=== PATIENT | male | born 1950 | race Caucasian/White ===

== ENCOUNTER → 2018-01-12 11:19 | Outpatient (CLI) | payer OTHER, SELFPAY | PROVIDERS: Visit Provider Physician Assistant | DX: L97.519 Non-pressure chronic ulcer of other part of right foot with unspecified severity (principal); L03.115 Cellulitis of right lower limb ==

== ENCOUNTER → 2018-01-15 11:04 | Outpatient (CLI) | payer OTHER, SELFPAY ==
--- NOTE | 2018-01-15 | OV.WND_ITS ---
Progress Note Details Patient Name: Vladimir Bennett Patient Number: [id number] PatientPatientDate: 01/15/2018 Clinician: Denise Berrios Clinician Cosigner: Albertina Walsh Physician / [place]br[place] Tanner: Teofilo Chawla SUBJECTIVE Chief Complaint This information was obtained from the chart Cellulitis of bilateral feet. Allergies penicillin (Severity: Moderate, Reaction: unkown) HPI This information was obtained from the patient 01/15/18. Seen by Dr. Chawla. The patient returns to clinic with bilateral plantar and dorsal foot non-pressure ulcers related to his refractory cellulitis and chronic fungal infections. He recently been placed on clindamycin for the cellulitis and feels the foot swelling and pain have begun to improve although it's still difficult for him to walk very far. The ulcers and cellulitis have been present for a number of months and he admittedly does not follow his providers' recommendation most often. 07/27/[address] Chawla. The patient reports significant improvement in terms of his right foot pain and he does not report any drainage from his wounds. 07/13/[address] Chawla. The patient returns to our clinic for review of bilateral, painful non-pressure foot ulcers. He reports pain and redness in particular in the right foot and lower leg which started about a week ago and he subsequently attended urgent care where a wound culture was performed and he was started on Bactrim. His culture returned positive today for MRSA and he's been advised to start taking doxycycline but has not picked up the prescription yet. He's also been given a topical and oral antifungal by his PCP and has been applying topical triamcinolone to both feet for a few weeks as per recommendations from dermatology. He states he's been having low grade fevers for the past week but feels the redness in the right lower leg and foot have improved since starting on Bactrim. He also has been soaking his feet in a sea salt bath twice daily and applied a homeopathic combination of activated charcoal and I believe 'tumeric' to the bilateral foot wounds to help alleviate the pain. Of note, he's been recently diagnosed with CAD and recommended to undergo CABG however he's states he's not willing to have surgery at this time. In relation to this he does not report rest pain or claudication. He also reports significant itching and cracking of the palmar surface of the right thumb that's been present for the past week. 10/17/14 Seen by Kevin Tellez PA-C. The patient did take the fluconazole and doxycycline as prescribed, but instead of following our foot care orders has purchased salt from the sea which he reports has purported health benefits. He has done several foot soaks using the salt and water. He believes his feet are much improved. 10/10/14 Seen by Kevin Tellez PA-C. The patient presents to the clinic with a recent history of what was described as a fungal cellulitis of his right foot. He is not immunocompromised, is not diabetic and his only medical history is hypertension. He has chronological photos on his phone of what appears to be resolving erythema once the keflex was started though he does not agree that the redness has been resolving. He has also been using topical antifungal creams on the foot. He has not had pain drainage associated with this cellulitis. Family History This information was obtained from the patient Cancer - Father, Diabetes - Paternal Grandparents, Heart Disease - Mother, Father Social History This information was obtained from the patient Never smoker, Alcohol Use - None, Caffeine Use - None, Children - 2 children, Lives in - Own home, Marital Status - , Object to Blood Products - No objections, Occupation - cardiac specialist Past Medical History This information was obtained from the patient Patient has a medical history of: Hypertension Peripheral Neuropathy CAD Surgical History This information was obtained from the patient Patient has a surgical history of: Hernia (Age 7) Colonoscopy Skin lesion removal (Age 5) Complaints and Symptoms This information was obtained from the patient Patient complains of: General Notes: I have reviewed and concur with the Review of Systems and Past Family Social History documents completed by the clinician, I have reviewed and concur with the Wound Assessment document completed by the clinician Hematologic/Lymphatic: Bleeding Tendency Integumentary (Hair/Skin/Nails): Lesions, Open Sore Prior Wound History: Drainage, Erythema, Pain Patient denies complaints or symptoms related to: Cardiovascular (Central): Irregular heart beat Cardiovascular (Central/Peripheral): Intermittent Claudication, Lower extremity (leg) resting pain, Lower extremity (leg) swelling Constitutional Symptoms (General Health): Chills, Fever, Loss of Appetite Ear/Nose/Mouth/Throat: Hearing Loss / Aid Gastrointestinal (GI): Nausea / Vomiting, Stomach/abdominal pain Hematologic/Lymphatic: Bleeding / Clotting Disorders Musculoskeletal: Assistive Devices, Muscle Weakness Neurological: Loss of Protective Sensation Prior Wound History: Bleeding, Malodor Psychiatric: Memory Loss Respiratory: Oxygen Use, Shortness of Breath Medications clindamycin HCl - oral 300 mg 1 capsule three times daily for 10 days for cellulitis OBJECTIVE Constitutional BP elevated; Afebrile; Alert and in no distress. Well developed. Alert. Clean appearing.. Height/Length: 76 in (193.04 cm), Weight: 250.4 lbs (113.82 kgs), BMI: 30.5, Temperature: 98.5 ?F (36.94 ?C), Pulse: 78 bpm, Respiratory Rate: 16 breaths/min, Blood Pressure: 182/87 mmHg, Pulse Oximetry: 98 %. Respiratory: No respiratory distress. Even respirations and without use of accessory muscles.. Cardiovascular: 1+ bilateral lower leg edema. Gastrointestinal (GI): Obese. Nondistended.. Integumentary (Hair, Skin) Mild periwound erythema without warmth; significant amount of denuded skin over both feet. Refer to appropriate clinician wound documentation for this visit; right and left foot ulcers extend to subcut with bases partially covered with pink granulation, remainder fibrin and slough. Wound #9 Left Foot is a chronic Partial Thickness Cellulitis and has received a status of Not Healed. Subsequent wound encounter measurements are 6cm length x 8cm width x 0.1cm depth, with an area of 48 sq cm and a volume of 4.8 cubic cm. No tunneling has been noted. No sinus tract has been noted. No undermining has been noted. There is a small amount of serosanguineous drainage noted which has no odor. The patient reports a wound pain of level 4/10. The wound margin is attached. Wound bed has Yes epithelialization, No eschar, Yes slough, No granulation. The periwound skin color is normal. The periwound skin exhibited: Edema, Dry/ Scaly. The periwound skin did not exhibit: Brawny Induration, Excoriation, Induration, Callus, Crepitus, Fluctuance, Friable, Rash, Moist, Maceration. The temperature of the periwound skin is WNL. Periwound skin presents with s/s of infection. Confirmation Description and Treatment Plan is: Signs and Symptoms Present. Local Pulse is Palpable. Wound #10 Right Foot is a chronic Partial Thickness Cellulitis and has received a status of Not Healed. Initial wound encounter measurements are 11cm length x 11.5cm width x 0.1cm depth, with an area of 126.5 sq cm and a volume of 12.65 cubic cm. No tunneling has been noted. No sinus tract has been noted. No undermining has been noted. There is a small amount of serosanguineous drainage noted which has no odor. The patient reports a wound pain of level 4/10. The wound margin is attached. Wound bed has No epithelialization, Yes eschar, Yes slough, No granulation. The periwound skin color is normal. The periwound skin exhibited: Edema, Dry/ Scaly. The periwound skin did not exhibit: Brawny Induration, Excoriation, Induration, Callus, Crepitus, Fluctuance, Friable, Rash, Moist, Maceration. The temperature of the periwound skin is Warm. Periwound skin presents with s/s of infection. Confirmation Description and Treatment Plan is: Signs and Symptoms Present. Local Pulse is Palpable. Neurological: Cranial nerves grossly intact with symmetric function normal by informal observation.. ASSESSMENT Active Problems ICD-10 (Encounter Diagnosis) L97.512 - Non-pressure chronic ulcer of other part of right foot with fat layer exposed (Encounter Diagnosis) L97.522 - Non-pressure chronic ulcer of other part of left foot with fat layer exposed (Encounter Diagnosis) L03.116 - Cellulitis of left lower limb (Encounter Diagnosis) L03.115 - Cellulitis of right lower limb PLAN Wound Orders: Wound #9 Left Foot Anesthetic Topical Xylocaine to wound bed. - Lidocaine used in clinic. Cleanser Cleanse Wound: - Distilled water and gauze. May Shower. - Cover while in shower. Other order: - Soak feet by using distilled water moistened gauze covering affected area for about 15 minutes a day. Dressings Cover and secure with: - Xeroform, secured with conform wrap gauze. Change Dressing: - Every day. Wound #10 Right Foot Anesthetic Topical Xylocaine to wound bed. - Lidocaine used in clinic. Cleanser Cleanse Wound: - Distilled water and gauze. May Shower. - Cover while in shower. Other order: - Soak feet by using distilled water moistened gauze covering affected area for about 15 minutes a day. Dressings Cover and secure with: - Xeroform, secured with conform wrap gauze. Change Dressing: - Every day. Additional Orders: Follow-Up Appointments Return Appointment: - - When you return from [place]. Other information: If you develop fever, chills, increased pain, drainage, redness or swelling please call our office. If after hours, respond to the ER. Should you experience any significant changes in your wound(s) or have any questions regarding your home care instructions please contact the wound center @ [phone]. If after hours, contact your primary care physician or go to the hospital emergency room. Scribing Attestation I attest, as the nurse, that I scribed these orders for the physician. I've reviewed the clinician's documentation and agree with the evaluation and plan as written. Also, the patient will continue on his clindamycin and we'll attempt to soften the adherent, dry and denuded skin to facilitate more effective debridement at his next visit. Electronic Signature(s) Signed By: Date: Teofilo Chawla MD 01/19/2018 06:47:29 Entered By: Teofilo Chawla on 01/19/2018 06:35:09 Addendum at 01/29/2018 13:05:14 Clinical level of care completed after progressed note was signed. Addendum Signed By: Teofilo Chawla on 01/29/2018 13:05:14
== END ==
PROVIDERS: PCP Physician Assistant; Visit Provider Family Medicine
DX: L97.512 Non-pressure chronic ulcer of other part of right foot with fat layer exposed (principal); L97.522 Non-pressure chronic ulcer of other part of left foot with fat layer exposed; L03.116 Cellulitis of left lower limb; L03.115 Cellulitis of right lower limb
CPT/HCPCS: 87070; 87077; 87147; 87186; 87205; 99214

== ENCOUNTER → 2019-03-31 15:42 | Outpatient (CLI) | payer OTHER, SELFPAY ==
[2019-03-31 16:47] LABS: Erythrocyte Sedimentation Rate 9 MM/HR (0-15)
[2019-03-31 17:51] LABS: BUN Creatinine Ratio 13.6 (6-22); Blood Urea Nitrogen 19 mg/dL (9-20); C-Reactive Protein Quant 1.6 mg/dL (<1.0); Carbon Dioxide 28 mmol/L (22-32); Chloride 104 mmol/L (98-107); Estimated Glomerular Filt Rate 50.5 mL/min (>60); Glucose 72 mg/dL (80-110); HEMOLYSIS < 15 (0-50); Potassium 5.2 mmol/L (3.4-5.1); Sodium 140 mmol/L (137-145)
[2019-03-31 18:21] LABS: TSH w/ Reflex to FT4 4.57 uIU/mL (0.47-4.68)
[2019-03-31 18:39] LABS: Vitamin B12 925 pg/mL (239-931)
[2019-03-31 19:13] LABS: Hemoglobin A1C% w Est Avg Glu 5.6 % (4.0-6.0)
== END ==
PROVIDERS: PCP Student in an Organized Health Care Education/Training Program; Visit Provider Student in an Organized Health Care Education/Training Program
DX: G62.9 Polyneuropathy, unspecified (principal); I10 Essential (primary) hypertension
CPT/HCPCS: 36415; 80048; 82607; 83036; 84443; 85651; 86140

== ENCOUNTER → 2020-09-12 15:55 | Outpatient (CLI) | payer OTHER, SELFPAY ==
[2020-09-12 16:55] LABS: BUN Creatinine Ratio 11.6 (6-22); Blood Urea Nitrogen 16 mg/dL (9-20); Calcium 9.6 mg/dL (8.4-10.2); Carbon Dioxide 26 mmol/L (22-32); Chloride 104 mmol/L (98-107); Estimated Glomerular Filt Rate 51.2 mL/min (>60); Glucose 96 mg/dL (80-110); HEMOLYSIS < 15 (0-50); Potassium 4.8 mmol/L (3.4-5.1); Sodium 138 mmol/L (137-145)
[2020-09-12 17:11] LABS: Creatinine Urine Random 108.2 mg/dL
[2020-09-12 17:16] LABS: Microalbumin Urine Random < 0.6 mg/dL (0-1.6)
[2020-09-12 17:23] LABS: Prostate Specific Antigen Scrn 2.48 ng/mL (0.1-4.0)
== END ==
PROVIDERS: PCP Student in an Organized Health Care Education/Training Program; Referring Provider Student in an Organized Health Care Education/Training Program; Visit Provider Student in an Organized Health Care Education/Training Program
DX: I10 Essential (primary) hypertension (principal); N17.9 Acute kidney failure, unspecified; Z12.5 Encounter for screening for malignant neoplasm of prostate
CPT/HCPCS: 36415; 80048; 82043; 82570; G0103

== ENCOUNTER → 2021-03-11 11:45 | Outpatient (CLI) | payer OTHER, SELFPAY ==
[2021-03-11 14:11] LABS: BUN Creatinine Ratio 9.2 (6-22); Blood Urea Nitrogen 14 mg/dL (9-20); Calcium 9.8 mg/dL (8.4-10.2); Carbon Dioxide 28 mmol/L (22-32); Chloride 104 mmol/L (98-107); Estimated Glomerular Filt Rate 45.5 mL/min (>60); Glucose 107 mg/dL (80-110); HEMOLYSIS < 15 (0-50); Sodium 140 mmol/L (137-145)
[2021-03-11 14:12] LABS: Potassium 5.4 mmol/L (3.4-5.1)
== END ==
PROVIDERS: PCP Student in an Organized Health Care Education/Training Program; Referring Provider Student in an Organized Health Care Education/Training Program; Visit Provider Student in an Organized Health Care Education/Training Program
DX: I10 Essential (primary) hypertension (principal); N18.31 Chronic kidney disease, stage 3a
CPT/HCPCS: 36415; 80048

== ENCOUNTER → 2021-03-27 12:48 | Outpatient (CLI) | payer OTHER, SELFPAY ==
--- NOTE | 2021-03-27 | DI.US.S_ITS ---
PROCEDURE: US CAROTID DOPPLER BI INDICATIONS: AMAUROSIS FUGAX TECHNIQUE: Color and pulse Doppler interrogation was performed of both carotid systems, with image documentation and velocity measurements. COMPARISON: None. FINDINGS: Stenosis calculations are based on SRU (Society of Radiologists in Ultrasound) criteria. Right side: Brachial blood pressure: 130/75 mm Hg. Common carotid artery peak systolic velocity: 110 cm/sec. Internal carotid artery peak systolic velocity: 161 cm/sec. Internal carotid artery end diastolic velocity: 20 cm/sec. External carotid artery peak systolic velocity: 247 cm/sec. ICA/CCA peak systolic ratio: 1.5 Rivera scale imaging description: Mild to moderate plaque at the bifurcation Percent internal carotid artery stenosis: 50-69% . Vertebral artery: Flow direction is antegrade. Left side: Brachial blood pressure: 122/70 mm Hg. Common carotid artery peak systolic velocity: 110 cm/sec. Internal carotid artery peak systolic velocity: 132 cm/sec. Internal carotid artery end diastolic velocity: 19 cm/sec. External carotid artery peak systolic velocity: 298 cm/sec. ICA/CCA peak systolic ratio: 1.2 . Rivera scale imaging description: Mild to moderate plaque at the bifurcation Percent internal carotid artery stenosis: 50-69% stenosis . Vertebral artery: Flow direction is antegrade. IMPRESSION: 1. 50-69% stenosis within the internal carotid arteries bilaterally. 2. Elevated velocities within the external carotid arteries bilaterally most suggestive significant stenosis. Further evaluation with CT a may be obtained as indicated. Dictated by: Leslye Kendall M.D. on 03/27/2021 at 16:32 Approved by: Leslye Kendall M.D. on 03/27/2021 at 16:34
== END ==
PROVIDERS: PCP Student in an Organized Health Care Education/Training Program; Referring Provider Ophthalmology; Visit Provider Ophthalmology
DX: I65.23 Occlusion and stenosis of bilateral carotid arteries (principal); G45.3 Amaurosis fugax
CPT/HCPCS: 93880

== ENCOUNTER → 2021-10-10 12:19 | Outpatient (CLI) | payer OTHER, SELFPAY ==
[2021-10-10 13:03] LABS: BUN Creatinine Ratio 14.8 (6-22); Blood Urea Nitrogen 20 mg/dL (9-20); Calcium 9.2 mg/dL (8.4-10.2); Carbon Dioxide 27 mmol/L (22-32); Chloride 104 mmol/L (98-107); Estimated Glomerular Filt Rate 57 mL/min (>60); Glucose 102 mg/dL (80-110); HEMOLYSIS < 15 (0-50); Phosphorous 3.3 mg/dL (2.3-3.7); Potassium 4.9 mmol/L (3.4-5.1); Sodium 140 mmol/L (137-145)
[2021-10-10 13:31] LABS: Prostate Specific Antigen Scrn 2.36 ng/mL (0.1-4.0)
[2021-10-10 16:14] LABS: Creatinine Urine Random 90.5 mg/dL
[2021-10-10 16:25] LABS: Microalbumin Urine Random < 0.6 mg/dL (0-1.6)
[2021-10-10 16:33] LABS: Vitamin D 25 Hydroxy (D3) 52.6 ng/mL (30.0-100.0)
== END ==
PROVIDERS: PCP Student in an Organized Health Care Education/Training Program; Referring Provider Student in an Organized Health Care Education/Training Program; Visit Provider Student in an Organized Health Care Education/Training Program
DX: I12.9 Hypertensive chronic kidney disease with stage 1 through stage 4 chronic kidney disease, or unspecified chronic kidney disease (principal); N18.31 Chronic kidney disease, stage 3a; Z12.5 Encounter for screening for malignant neoplasm of prostate
CPT/HCPCS: 36415; 80048; 82043; 82306; 82570; 84100; G0103

== ENCOUNTER 2022-09-03 10:45 | Emergency (ER) | payer OTHER, SELFPAY ==
[2022-09-03] VITALS (23 sets, daily range): BP systolic 132–219; BP diastolic 70–100; PULSE 50–79; RESP 12–24; TEMP 36.6; O2SAT 94–98; BMI 34.7
--- NOTE | 2022-09-03 11:00 | DI.RAD.S_ITS ---
PROCEDURE: XR CHEST 1V INDICATIONS: chest pain TECHNIQUE: One view of the chest was acquired. COMPARISON: None. FINDINGS: Surgical changes and devices: None. Lungs and pleura: Very mild interstitial pulmonary edema. No pleural effusions or pneumothorax. Mediastinum: Mediastinal contours appear normal. Heart size is normal. Bones and chest wall: No suspicious bony lesions. Overlying soft tissues appear unremarkable. IMPRESSION: Very mild interstitial pulmonary edema. Dictated by: Tino Linn M.D. on 09/03/2022 at 11:35 Approved by: Tino Linn M.D. on 09/03/2022 at 11:38
[2022-09-03] MEDS: ASPIRIN 81 MG CHEW TAB 324 MG PO (11:08)
[2022-09-03 11:17] LABS: INR 0.9 (0.9-1.3); Prothrombin Time 10.7 SECONDS (10.1-12.7)
[2022-09-03 11:20] LABS: PTT Partial Thromboplastin Tim 30 SECONDS (26-36)
[2022-09-03 11:21] LABS: Add Manual Diff / Slide Review NO; Basophils Absolute Auto 0 /uL (0-100); Basophils Percent Auto 0.5 % (0-2); Eosinophils Absolute Auto 0 /uL (0-450); Eosinophils Percent Auto 0.5 % (2-4); Hematocrit 44.9 % (41-53); Hemoglobin 15.1 g/dL (13.5-17.5); Lymphocytes Absolute Auto 1900 /uL (1100-4500); Lymphocytes Percent Auto 20.2 % (25-40); Mean Corpuscular HGB Conc 33.6 % (30-36); Mean Corpuscular Hemoglobin 31.8 PG (26-34); Mean Corpuscular Volume 94.9 fL (80-100); Monocytes Absolute Auto 700 /uL (0-900); Monocytes Percent Auto 7.6 % (3-14); Neutrophils Absolute Auto 6800 /uL (1500-7000); Neutrophils Percent Auto 71.2 % (50-75); Platelet Count 267 X10^3/uL (150-400); Red Blood Cell Count 4.74 X10^6/uL (4.5-5.9); Red Cell Distribution Width 12.9 % (11.6-14.8); White Blood Cell Count 9.5 X10^3/uL (4.5-11.0)
[2022-09-03 11:26] LABS: Alanine Aminotransferase 43 IU/L (<50); Albumin 4.3 g/dL (3.5-5.0); Albumin Globulin Ratio 1.3 (1.0-2.8); Alkaline Phosphatase 95 U/L (38-126); Aspartate Aminotransferase 73 IU/L (17-59); BUN Creatinine Ratio 13.2 (6-22); Bilirubin Total 0.5 mg/dL (0.2-1.3); Blood Urea Nitrogen 15 mg/dL (9-20); Calcium 8.9 mg/dL (8.4-10.2); Carbon Dioxide 26 mmol/L (22-32); Chloride 104 mmol/L (98-107); Creatine Kinase 360 U/L (55-170); Estimated Glomerular Filt Rate > 60 mL/min (>60); Globulin 3.4 g/dL (1.7-4.1); Glucose 147 mg/dL (80-110); HEMOLYSIS < 15 (0-50); Lipase 150 U/L (23-300); Magnesium 2.2 mg/dL (1.6-2.3); Potassium 4.6 mmol/L (3.4-5.1); Sodium 137 mmol/L (137-145); Total Protein 7.7 g/dL (6.3-8.2)
--- NOTE | 2022-09-03 11:59 | ED.CHESTPAIN ---
HPI - Chest Pain General Chief Complaint: Chest Pain Stated Complaint: angina since last night Time Seen by Provider: 09/03/22 11:23 Source: patient Mode of arrival: Ambulatory Limitations: no limitations History of Present Illness HPI narrative: Patient here with spouse complains of substernal chest pain that radiated to the back that occurred last night. Currently 1/10 chest pain. Patient in no distress. No nausea or sweating or shortness of breath. Patient took 4 baby aspirins. This morning. Patient states years ago he had heart catheterization at [facility] in [place]. More than 5 years ago. He was recommended to have a quadruple bypass. He refused. He also refused to take cholesterol medication. He is on blood pressure medication. He refuses to take daily aspirin. Troponin is elevated. EKG does not stroke ST elevation. Patient aware will need to transfer to [facility] for catheterization. He agrees with this plan. Related Data Previous Rx's Medication Instructions Recorded amlodipine 10 mg tablet 10 mg PO DAILY #90 tabs 03/26/22 gabapentin 300 mg capsule 300 mg PO TID PRN Neuropathy #14 03/26/22 caps lisinopril 20 mg tablet 20 mg PO DAILY #90 tabs 03/26/22 Allergies Allergy/AdvReac Type Severity Reaction Status Date / Time Penicillins [PENICILLINS] Allergy Unknown Verified 09/03/22 11:07 Review of Systems Review of Systems Narrative: GENERAL: negative chills, fatigue, malaise, fever, sweats. HEENT: negative sinus pain, ear pain, sore throat RESPIRATORY: negative dyspnea, cough CARDIOVASCULAR: Positive chest pain, negative palpitations GASTROINTESTINAL: negative nausea, vomiting, abdominal pain : negative dysuria, frequency, hematuria MUSCULOSKELETAL: negative muscle or bony pain SKIN: negative rash, skin lesions NEUROLOGIC: negative weakness, numbness ROS Unobtainable: All systems reviewed & are unremarkable except as noted in HPI and below Patient History Medical History Blood glucose elevated CAD (coronary artery disease) Cellulitis (08/2014) Fungal infection Hypertension MRSA infection (2016) Onychomycosis Tinea pedis of both feet Ulcer of right foot Vegan diet Social History Smoking Status: Never smoker Smoking Status: Never smoker Substance Use Type: does not use Exam Narrative Exam Narrative: GENERAL: in no distress, not toxic not dyspneic HEAD: Normocephalic. EYES: Pupils equal round ENT: Mucous membranes moist. NECK: Trachea midline. CARDIOVASCULAR: Regular rate and rhythm without murmurs RESPIRATORY: Clear to auscultation. Breath sounds equal bilaterally. No wheezes, rales, or rhonchi. GASTROINTESTINAL: Abdomen soft, non-tender EXTREMITIES: No gross deformities. BACK: No flank tenderness. NEURO: AOx4. SKIN: Warm and dry PSYCH: Not anxious, is cooperative Initial Vital Signs Initial Vital Signs: Vital Signs Temperature 98 F 09/03/22 10:45 Pulse Rate 73 09/03/22 10:45 Respiratory Rate 18 09/03/22 10:45 Blood Pressure 219/100 H 09/03/22 10:45 Pulse Oximetry 98 09/03/22 10:45 Oxygen Delivery Method Room Air 09/03/22 10:45 Course Orders Ordered: Discontinued Medications Aspirin (Aspirin 81 Mg Chew Tab) 324 mg PO NOW ONE Stop: 09/03/22 11:01 Last Admin: 09/03/22 11:08 Dose: 324 mg Documented By: GUNNER Heparin Sodium (Porcine) (Heparin 5,000 Unit/Ml Vial) 7,500 unit IV NOW ONE Stop: 09/03/22 11:49 Last Admin: 09/03/22 12:02 Dose: 5,000 unit Documented By: GUNNER Heparin Sodium/Dextrose (Heparin Drip) 25,000 unit in 500 mls @ 29.393 mls/hr IV CONT NAVARRO; Protocol Last Titration: 09/03/22 15:40 Dose: 0 units/kg/hr, 0 mls/hr Documented By: REMIGIO Co-signed By: JESSENIA Admin: 09/03/22 12:03 Dose: 8.17 units/kg/hr, 20.012 mls/hr Documented By: GUNNER Co-signed By: JUSTINA Metoprolol Tartrate (Metoprolol Ir 25 Mg Tablet) 25 mg PO NOW ONE Stop: 09/03/22 11:57 Last Admin: 09/03/22 12:43 Dose: 25 mg Documented By: REMIGIO Nitroglycerin (Nitroglycerin Oint 1 Inch/Gm Oint...G.) 0.5 inch TOP NOW ONE Stop: 09/03/22 11:57 Last Admin: 09/03/22 12:21 Dose: 0.5 inch Documented By: RB Vital Signs Vital signs: Vital Signs - 8 hr 09/03/22 10:45 09/03/22 10:50 09/03/22 10:53 Temperature 98 F Pulse Rate 73 79 74 Respiratory Rate 18 24 Blood Pressure 219/100 H Pulse Oximetry 98 98 98 Oxygen Delivery Method Room Air 09/03/22 10:53 09/03/22 10:56 09/03/22 10:56 Temperature Pulse Rate 72 Respiratory Rate 22 Blood Pressure 219/100 H 197/93 H Pulse Oximetry 95 Oxygen Delivery Method 09/03/22 11:00 09/03/22 11:00 09/03/22 11:30 Temperature Pulse Rate 66 Respiratory Rate 18 Blood Pressure 171/76 H 177/79 H Pulse Oximetry 98 Oxygen Delivery Method 09/03/22 11:30 09/03/22 12:00 09/03/22 12:00 Temperature Pulse Rate 70 64 Respiratory Rate 15 18 Blood Pressure 165/77 H Pulse Oximetry 98 96 Oxygen Delivery Method 09/03/22 12:21 09/03/22 12:15 09/03/22 12:22 Temperature Pulse Rate 61 63 60 Respiratory Rate 16 17 Blood Pressure 165/77 H Pulse Oximetry 97 95 Oxygen Delivery Method 09/03/22 12:22 09/03/22 12:30 09/03/22 12:30 Temperature Pulse Rate 63 Respiratory Rate 18 Blood Pressure 154/84 H 188/82 H Pulse Oximetry 97 Oxygen Delivery Method 09/03/22 12:45 09/03/22 12:45 Temperature Pulse Rate 62 Respiratory Rate 15 Blood Pressure 189/88 H Pulse Oximetry 96 Oxygen Delivery Method MDM - Chest Pain Lab Data 09/03/22 10:57 09/03/22 10:57 Labs: Lab Results 09/03/22 09/03/22 09/03/22 Range/Units 10:57 10:57 10:57 WBC 9.5 (4.5-11.0) X10^3/uL RBC 4.74 (4.5-5.9) X10^6/uL Hgb 15.1 (13.5-17.5) g/dL Hct 44.9 (41-53) % MCV 94.9 (80-100) fL MCH 31.8 (26-34) PG MCHC 33.6 (30-36) % RDW 12.9 (11.6-14.8) % Plt Count 267 (150-400) X10^3/uL Neut % (Auto) 71.2 (50-75) % Lymph % (Auto) 20.2 L (25-40) % [place] % (Auto) 7.6 (3-14) % Eos % (Auto) 0.5 L (2-4) % Baso % (Auto) 0.5 (0-2) % Neut # (Auto) 6800 (6821-5216) /uL Lymph # (Auto) 1900 (2412-3571) /uL [place] # (Auto) 700 (0-900) /uL Eos # (Auto) 0 (0-450) /uL Baso # (Auto) 0 (0-100) /uL PT 10.7 (10.1-12.7) SECONDS INR 0.9 (0.9-1.3) APTT 30 (26-36) SECONDS Sodium 137 (137-145) mmol/L Potassium 4.6 (3.4-5.1) mmol/L Chloride 104 (98-107) mmol/L Carbon Dioxide 26 (22-32) mmol/L BUN 15 (9-20) mg/dL Creatinine 1.14 (0.66-1.25) mg/dL Estimated GFR > 60 (>60) mL/min BUN/Creatinine Ratio 13.2 (6-22) Glucose 147 H (80-110) mg/dL Calcium 8.9 (8.4-10.2) mg/dL Magnesium 2.2 (1.6-2.3) mg/dL Total Bilirubin 0.5 (0.2-1.3) mg/dL AST 73 H (17-59) IU/L ALT 43 (<50) IU/L Alkaline Phosphatase 95 (38-126) U/L Total Creatine Kinase 360 H (55-170) U/L CK-MB (CK-2) TNP CK-MB (CK-2) Rel Index TNP Troponin I 4.370 H* (0.01-0.034) ng/mL Total Protein 7.7 (6.3-8.2) g/dL Albumin 4.3 (3.5-5.0) g/dL Globulin 3.4 (1.7-4.1) g/dL Albumin/Globulin Ratio 1.3 (1.0-2.8) Lipase 150 (23-300) U/L SARS-CoV-2 (PCR) (Negative) 09/03/22 09/03/22 Range/Units 11:45 13:34 WBC (4.5-11.0) X10^3/uL RBC (4.5-5.9) X10^6/uL Hgb (13.5-17.5) g/dL Hct (41-53) % MCV (80-100) fL MCH (26-34) PG MCHC (30-36) % RDW (11.6-14.8) % Plt Count (150-400) X10^3/uL Neut % (Auto) (50-75) % Lymph % (Auto) (25-40) % [place] % (Auto) (3-14) % Eos % (Auto) (2-4) % Baso % (Auto) (0-2) % Neut # (Auto) (4795-6121) /uL Lymph # (Auto) (5472-1180) /uL [place] # (Auto) (0-900) /uL Eos # (Auto) (0-450) /uL Baso # (Auto) (0-100) /uL PT (10.1-12.7) SECONDS INR (0.9-1.3) APTT (26-36) SECONDS Sodium (137-145) mmol/L Potassium (3.4-5.1) mmol/L Chloride (98-107) mmol/L Carbon Dioxide (22-32) mmol/L BUN (9-20) mg/dL Creatinine (0.66-1.25) mg/dL Estimated GFR (>60) mL/min BUN/Creatinine Ratio (6-22) Glucose (80-110) mg/dL Calcium (8.4-10.2) mg/dL Magnesium (1.6-2.3) mg/dL Total Bilirubin (0.2-1.3) mg/dL AST (17-59) IU/L ALT (<50) IU/L Alkaline Phosphatase (38-126) U/L Total Creatine Kinase (55-170) U/L CK-MB (CK-2) CK-MB (CK-2) Rel Index Troponin I 6.160 H* (0.01-0.034) ng/mL Total Protein (6.3-8.2) g/dL Albumin (3.5-5.0) g/dL Globulin (1.7-4.1) g/dL Albumin/Globulin Ratio (1.0-2.8) Lipase (23-300) U/L SARS-CoV-2 (PCR) Negative (Negative) Urine Dip Bedside Urine Glucose Negative Bedside Urine Bilirubin - Negative Bedside Urine Ketone - Negative Urine Specific [place] 1.005 Bedside Urine Occult Blood - Negative Bedside Urine pH 6.5 Bedside Urine Protein - Negative Bedside Urine Urobilinogen - Negative Bedside Urine Nitrite - Negative Bedside Urine Leukocytes - Negative Esterase Imaging Data Chest x-ray: Radiologist's Impression: [address] [address] XRay Report Signed Patient: Vladimir Bennett MR#: [id number] : 1950 Acct:[id number] Age/Sex: 72 / M Date of Service: 09/03/22 Loc: ED Accession Number: [id number] ?? Procedure: XR chest 1V Ordering Provider: Teofilo Baez MD PROCEDURE:? XR CHEST 1V ? INDICATIONS:? chest pain ? TECHNIQUE:? One view of the chest was acquired.? ? COMPARISON:? None. ? FINDINGS:? ? Surgical changes and devices:? None.? ? Lungs and pleura:? Very mild interstitial pulmonary edema.? No pleural effusions or pneumothorax.? ? Mediastinum:? Mediastinal contours appear normal.? Heart size is normal.? ? Bones and chest wall:? No suspicious bony lesions.? Overlying soft tissues appear unremarkable.? ? IMPRESSION:? Very mild interstitial pulmonary edema. ? ? Dictated by: Tino Linn M.D. on 09/03/2022 at 11:35 ? ? Approved by: Tino Linn M.D. on 09/03/2022 at 11:38 ? MDM Narrative Medical decision making narrative: Patient here with spouse complains of substernal chest pain that radiated to the back that occurred last night. Currently 1/10 chest pain. Patient in no distress. No nausea or sweating or shortness of breath. Patient took 4 baby aspirins. This morning. Patient states years ago he had heart catheterization at [facility] in [place]. More than 5 years ago. He was recommended to have a quadruple bypass. He refused. He also refused to take cholesterol medication. He is on blood pressure medication. He refuses to take daily aspirin. Troponin is elevated. EKG does not stroke ST elevation. Patient aware will need to transfer to [facility] for catheterization. He agrees with this plan. After history and exam CBC CMP PT PTT troponin chest x-ray EKG [facility] CC: Chest pain Complicating co-morbidities: Noncompliance, history of coronary artery disease Data collected from: Patient and Medical records reviewed: No recent visits for this complaint Differential considered: Includes but not limited to STEMI non-STEMI stable angina unstable angina Exam documented above, pertinent findings include: Nontender chest Lab Test results independently reviewed as above. Pertinent findings: Hemoglobin 15.1 hematocrit 44.9 INR 0.9 BUN 15 creatinine 1.14 GFR greater than 60 troponin 4.370 Independently reviewed EKG normal sinus rhythm rate [address] elevation or depression Imaging studies independently reviewed: Chest x-ray no acute process Consultations: 11:50 a.m.. Spoke with Cardiology, Dr. Mohr, recommends metoprolol tartrate 25 mg by mouth. Nitro paste, heparin drip, no Plavix. Patient to be transferred to heart catheterization Hospital with resources. 12:59 p.m.. Spoke with [facility], spoke with Dr. Xiao, hospitalist, she will accept patient Treatments: Aspirin heparin nitro paste Re-evaluations: Reviewed results with patient and he does agree for transfer for heart catheterization. Patient chest pain free at this time. Patient in no distress. Blood pressure is stable. Discussion: Appropriate for transfer as we do not have heart catheterization capabilities here. Patient is stable. Not toxic. Chest pain-free. Blood pressure is controlled. Heparin has been started. Metoprolol and aspirin has been given. Cardiology on-call has been contacted. Diagnosis: Non-STEMI Critical Care Time Critical Care Time Attestation: Critical Care Time 35 minutes: Critical care time is separate from other billable procedures. This critical care time includes consultation with family and other consulting doctors, review of records, and interpretation of data from labs, EKGs, imaging, etc. Discharge Plan Departure Patient Disposition: Xfer Acute Care Hospital Clinical Impression: Non-ST elevated myocardial infarction (non-STEMI) Prescriptions: No Action lisinopril 20 mg tablet 20 mg PO DAILY Qty: 90 3RF amlodipine 10 mg tablet 10 mg PO DAILY Qty: 90 3RF gabapentin 300 mg capsule 300 mg PO TID PRN (Reason: Neuropathy) Qty: 14 0RF Referrals: Dayo Grider MD [Primary Care Provider] -
[2022-09-03] MEDS: HEPARIN 5,000 UNIT/ML VIAL 7500 UNIT IV (12:02)
[2022-09-03] MEDS: HEPARIN DRIP 25,000 UNIT/500 ML IV.SOLN 20.012 UNIT IV (12:03)
[2022-09-03 12:10] LABS: COVID19 -Nasal RAPID Negative (Negative)
[2022-09-03] MEDS: NITROGLYCERIN OINT 1 INCH/GM OINT...G. 0.5 INCH TOP (12:21)
[2022-09-03] MEDS: METOPROLOL IR 25 MG TABLET PO (12:43)
--- NOTE | 2022-09-03 15:51 | PC.NURSE ---
Addendum entered by Geovanny Fernandez R.N. 09/03/22 16:04: Gave patient report to ABNER Mart at [facility]. Gave RN the phone number for this ER if there were any additional questions arise. Original Note: This RN attempted to give ABNER Mart the nurse assigned from [facility] report on this patient that left. Nurse was too busy to take call. This RN gave the person answering the phone the return number for this RN and asked them to call when they have a moment and notified that patient left facility at 1540.
== END 2022-09-03 15:40 | disposition short-term general hospital (02) ==
PROVIDERS: Emergency Provider Emergency Medicine; PCP Pediatrics
DX: I21.4 Non-ST elevation (NSTEMI) myocardial infarction (principal); Z95.5 Presence of coronary angioplasty implant and graft; Z20.822 Contact with and (suspected) exposure to COVID-19
CPT/HCPCS: 36415; 71045; 80053; 81003; 82550; 83690; 83735; 84484; 85025; 85610; 85730; 87635; 93005; 93010; 96365; 96366; 96376; 99285; 99291; C9803; J1644

== ENCOUNTER → 2022-10-06 08:08 | Outpatient (CLI) | payer MEDICARE, OTHER, SELFPAY ==
[2022-10-06 11:41] LABS: Folate 10.9 ng/mL (2.76-20.0); Vitamin B12 > 1000 pg/mL (239-931)
[2022-10-07 07:09] LABS: x Labcorp Estim. Avg Glu (eAG) 114 mg/dL (.); x Labcorp Hemoglobin A1c 5.6 % (4.8-5.6)
== END ==
PROVIDERS: PCP Pediatrics; Visit Provider Nurse Practitioner Family
DX: G62.9 Polyneuropathy, unspecified (principal); R89.9 Unspecified abnormal finding in specimens from other organs, systems and tissues; I25.10 Atherosclerotic heart disease of native coronary artery without angina pectoris; R73.9 Hyperglycemia, unspecified
CPT/HCPCS: 36415; 82607; 82746; 83036

== ENCOUNTER 2022-12-08 10:15 | Outpatient (RCR) | payer MEDICARE, OTHER, SELFPAY | END 2022-12-08 12:15 | LOC: CAR 10:15 | PROVIDERS: PCP Pediatrics; Referring Provider Pediatrics; Visit Provider Pediatrics | DX: I21.3 ST elevation (STEMI) myocardial infarction of unspecified site (principal) | CPT/HCPCS: 93798 ==

== ENCOUNTER → 2023-01-06 13:57 | Outpatient (CLI) | payer MEDICARE, OTHER, SELFPAY ==
[2023-01-06 15:06] LABS: Cholesterol 282 mg/dL (140-199); HDL Cholesterol 25 mg/dL (40-60); Triglycerides 424 mg/dL (35-150)
== END ==
PROVIDERS: Visit Provider Nurse Practitioner Family
DX: I21.4 Non-ST elevation (NSTEMI) myocardial infarction (principal); Z95.1 Presence of aortocoronary bypass graft; I25.10 Atherosclerotic heart disease of native coronary artery without angina pectoris; E78.5 Hyperlipidemia, unspecified
CPT/HCPCS: 36415; 80061

== ENCOUNTER → 2023-11-26 11:08 | Outpatient (CLI) | payer MEDICARE, OTHER, SELFPAY ==
[2023-11-26 12:07] LABS: Hematocrit 48.7 % (41-53); Hemoglobin 16.4 g/dL (13.5-17.5); Mean Corpuscular HGB Conc 33.8 % (30-36); Mean Corpuscular Hemoglobin 32.1 PG (26-34); Mean Corpuscular Volume 95.2 fL (80-100); Platelet Count 258 X10^3/uL (150-400); Red Blood Cell Count 5.11 X10^6/uL (4.5-5.9); Red Cell Distribution Width 12.4 % (11.6-14.8); White Blood Cell Count 7.4 X10^3/uL (4.5-11.0)
[2023-11-26 12:24] LABS: Alanine Aminotransferase 33 IU/L (<50); Albumin 4.6 g/dL (3.5-5.0); Albumin Globulin Ratio 1.5 (1.0-2.8); Alkaline Phosphatase 93 U/L (38-126); Aspartate Aminotransferase 37 IU/L (17-59); BUN Creatinine Ratio 13.5 (6-22); Bilirubin Total 0.8 mg/dL (0.2-1.3); Blood Urea Nitrogen 21 mg/dL (9-20); Calcium 9.7 mg/dL (8.4-10.2); Carbon Dioxide 25 mmol/L (22-32); Chloride 104 mmol/L (98-107); Cholesterol 272 mg/dL (140-199); Estimated Glomerular Filt Rate 47 mL/min (>60); Glucose 118 mg/dL (80-110); HDL Cholesterol 27 mg/dL (40-60); HEMOLYSIS < 15 (0-50); LDL Cholesterol Calculated 191 mg/dL (<100); Potassium 5.3 mmol/L (3.4-5.1); Sodium 140 mmol/L (137-145); Total Protein 7.6 g/dL (6.3-8.2); Triglycerides 271 mg/dL (35-150)
[2023-11-26 13:06] LABS: Hep C Virus Ab w/Reflex Quant NEGATIVE s/c (NEGATIVE)
[2023-11-26 17:01] LABS: Hemoglobin A1C% w Est Avg Glu 5.7 % (4.0-6.0)
== END ==
PROVIDERS: PCP Family Medicine; Referring Provider Family Medicine; Visit Provider Family Medicine
DX: I10 Essential (primary) hypertension (principal); R73.01 Impaired fasting glucose; N18.31 Chronic kidney disease, stage 3a; E78.2 Mixed hyperlipidemia; Z95.1 Presence of aortocoronary bypass graft
CPT/HCPCS: 36415; 80053; 80061; 83036; 85027; 86803

== ENCOUNTER → 2024-09-08 11:43 | Outpatient (CLI) | payer MEDICARE, OTHER, SELFPAY ==
--- NOTE | 2024-09-08 11:45 | DI.US.S_ITS ---
PROCEDURE: US AXILLARY ONLY LT COMPARISON: None. INDICATIONS: Mass of left axilla - 0.5cm mid posterior Technique: Grayscale images were obtained of the left axillary area of concern FINDINGS AND IMPRESSION: No discrete mass, enlarged lymph node, or fluid collection identified. Clinical followup is recommended. If there is new or worsening clinical concern, reimaging could be obtained. Dictated by: Danny Garcia M.D. on 09/09/2024 at 17:09 Approved by: Danny Garcia M.D. on 09/09/2024 at 17:10
== END ==
PROVIDERS: PCP Family Medicine; Referring Provider Family Medicine; Visit Provider Physician Assistant
DX: R22.32 Localized swelling, mass and lump, left upper limb (principal)
CPT/HCPCS: 76882